=== PATIENT | female | born 1950 | race Caucasian/White ===

== ENCOUNTER 2017-09-07 09:10 | Emergency (ER) | payer OTHER, BC ==
[~2017-09-07] VITALS: Ht 167.6 cm; Wt 81.7 kg
[2017-09-07 10:04] LABS: HEMATOCRIT 39.7 % (36.0-46.0); HEMOGLOBIN 13.6 G/DL (11.9-15.5); MCH 31.3 PG (29.0-34.0); MCHC 34.3 G/DL (30.0-36.0); MCV 91.3 FL (83-99); PLATELET COUNT 243 K/uL (156-360); RBC DIS.WIDTH-CV 12.2 % (11.8-14.6); RBC DIS.WIDTH-SD 41.1 % (39-53); RED BLOOD COUNT 4.35 M/uL (3.80-5.20); WHITE BLOOD COUNT 8.4 K/uL (4.1-10.2)
[2017-09-07 10:14] LABS: ALBUMIN 4.1 g/dL (3.2-4.8)
[2017-09-07 10:15] LABS: CHLORIDE 106 mEq/L (99-109); D-DIMER ELISA < 150.00 ng/mLDDU (<230); POTASSIUM 4.1 mEq/L (3.7-5.4); SODIUM 141 mEq/L (136-147)
[2017-09-07 10:17] LABS: GLUCOSE 120 mg/dL (70-99); TOTAL PROTEIN 6.7 g/dL (6.4-8.3)
[2017-09-07 10:19] LABS: TOTAL BILIRUBIN 0.4 mg/dL (0.0-1.0)
[2017-09-07 10:20] LABS: ALKALINE PHOSPHATASE 62 IU/L (3-129)
[2017-09-07 10:21] LABS: GFR ESTIMATE (CALCULATED) > 59 mL/min/
[2017-09-07 10:22] LABS: AST (GOT) 29 IU/L (2-34); UREA NITROGEN (BUN) 20 mg/dL (9-23)
[2017-09-07 10:23] LABS: ALT (GPT) 27 IU/L (3-49)
[2017-09-07 10:24] LABS: TROP-I INTERPRETATION NEGATIVE; TROPONIN-I < 0.01 ng/mL (0.0-0.30)
[2017-09-07 11:14] VITALS: BP 118/63
== END 2017-09-07 11:16 | disposition home or self-care (01) ==
LOC: EME 09:10
PROVIDERS: Emergency Medicine
DX: R07.89 Other chest pain (principal); E03.9 Hypothyroidism, unspecified; Z88.8 Allergy status to other drugs, medicaments and biological substances
CPT/HCPCS: 71046; 80053; 84484; 85027; 85379; 93005; 99281; 99284